=== PATIENT | female | born 1935 | race Asian ===

== ENCOUNTER 2024-10-01 11:15 | Emergency (ER) | payer MEDICARE, OTHER ==
[~2024-10-01] VITALS: Ht 157.5 cm; Wt 39.5 kg
[~2024-10-01 11:15] MED LIST: ASPI81TA40 PO; ATOR10TA PO; CHOL2000 PO; LEVO75TA10 PO; METO25XL PO; MULT-1259 PO; SITA1TAB2 PO; VALS160T2 PO
[2024-10-01] MEDS ORDERED: AMLO2.5T29 PO (12:01)
[2024-10-01] MEDS ORDERED: CARV6.2534 PO (12:01)
[2024-10-01] MEDS ORDERED: SITA1TAB6 PO (12:01)
[2024-10-01] MEDS ORDERED: EMPA25TA3 PO (12:01)
[2024-10-01 12:14] LABS: COVID AG,FIA SOURCE NASAL SWAB
[2024-10-01 12:51] LABS: SARS-COV2 (COVID) ANTIGEN,FIA Negative (Negative)
[2024-10-01 13:00] LABS: BASOPHILS % (AUTO) 0.3 % (0.0-2.0); EOSINOPHILS % (AUTO) 0.6 % (1.0-6.0); HEMATOCRIT 39.2 % (36-46); HEMOGLOBIN 12.7 g/dL (12.0-16.0); LYMPHOCYTES # (AUTO) 1.4 K/uL (1.0-4.8); MEAN CORPUSCULAR HEMOGLOBIN 27.2 pg (26.0-34.0); MEAN CORPUSCULAR HGB CONC 32.4 G/dL (31.0-37.0); MEAN CORPUSCULAR VOLUME 84 fL (80-100); MONOCYTES # (AUTO) 0.5 K/uL (0.1-1.0); MONOCYTES % (AUTO) 5.4 % (2.0-9.0); NEUTROPHILS # (AUTO) 6.9 K/uL (1.8-7.7); NEUTROPHILS % (AUTO) 77.7 % (40.0-70.0); PLATELET COUNT (AUTO) 195 K/uL (150-450); RED BLOOD CELL COUNT(AUTO) 4.66 MIL/uL (4.00-5.20); WHITE BLOOD COUNT (AUTO) 8.8 K/uL (4.5-11.0)
[2024-10-01 13:08] LABS: PROTHROMBIN TIME 10.2 SEC (9.4-11.6)
[2024-10-01 13:13] LABS: TROPONIN I-HIGH SENSITIVITY 10 ng/L (<51)
[2024-10-01 13:19] LABS: ANION GAP 9 mmol/L (8-16); CALCIUM, TOTAL 10.4 mg/dL (8.8-10.5); CARBON DIOXIDE 29 mmol/L (22-29); CHLORIDE 102 mmol/L (98-107); GLOMERULAR FILTR. RATE CALC 42 mL/min (>60); GLUCOSE,RANDOM 109 mg/dL (70-110); SODIUM SERUM 140 mmol/L (136-145); UREA NITROGEN, BLOOD 29 mg/dL (7-18)
[2024-10-01 13:26] LABS: LACTIC ACID 0.8 mmol/L (0.4-2.0)
[2024-10-01 13:45] LABS: THYROID STIMULATING HORMONE 2.35 uIU/mL (0.36-3.74)
[2024-10-01 13:59] VITALS: BP 210/85; PULSE 66; RESP 18; TEMP 97.7; O2SAT 97
[2024-10-01 14:10] LABS: APPEARANCE,URINE CLEAR (CLEAR); BILIRUBIN,URINE NEGATIVE (NEGATIVE); COLOR,URINE LIGHT YELLOW (YELLOW); GLUCOSE, URINE (UA) >=1000 mg/dL (NEGATIVE); KETONES,URINE NEGATIVE (NEGATIVE); LEUKOCYTE ESTERASE ,URINE NEGATIVE (NEGATIVE); NITRATE,URINE NEGATIVE (NEGATIVE); OCCULT BLOOD,URINE NEGATIVE (NEGATIVE); PH,URINE 7.5 (5.0-8.0); PH,URINE DRUG SCREEN 7.5 (5.0-8.0); PROTEIN,URINE NEGATIVE (NEGATIVE); SPECIFIC GRAVITIY, URINE 1.006 (1.003-1.030); UROBILINOGEN,URINE <=1.0 mg/dL (<=1.0)
[2024-10-01 14:17] LABS: AMPHET/METH SCREEN,URINE NEGATIVE (NEGATIVE); BARBITURATE SCREEN, URINE NEGATIVE (NEGATIVE); BENZODIAZEPINES SCREEN,URINE NEGATIVE (NEGATIVE); CANNABINOID SCREEN,URINE NEGATIVE (NEGATIVE); COCAINE SCREEN,URINE NEGATIVE (NEGATIVE); METHADONE SCREEN, URINE NEGATIVE (NEGATIVE); OPIATE SCREEN,URINE NEGATIVE (NEGATIVE); PHENCYCLIDINE SCREEN,URINE NEGATIVE (NEGATIVE)
[2024-10-01 14:21] LABS: ALCOHOL, URINE DRUG SCREEN NEGATIVE (NEGATIVE)
[2024-10-01 14:30] LABS: BACTERIA,URINE None Seen /HPF (None Seen); RBC,URINE 0-2 /HPF (0-2); WBC,URINE None Seen /HPF (0-5)
== END 2024-10-01 16:48 | disposition short-term general hospital (02) ==
LOC: EMS 11:20
DX: G90.9 Disorder of the autonomic nervous system, unspecified (principal); I10 Essential (primary) hypertension; R55 Syncope and collapse; E11.9 Type 2 diabetes mellitus without complications; E03.9 Hypothyroidism, unspecified; I49.1 Atrial premature depolarization; Z98.890 Other specified postprocedural states; Z20.822 Contact with and (suspected) exposure to COVID-19
CPT/HCPCS: 51702; 70450; 71045; 72125; 80048; 80307; 81001; 83605; 84443; 84484; 85025; 85610; 85730; 87040; 93005; 99285; 36415-L1; 36415-TC